=== PATIENT | male | born 1950 | race Caucasian/White ===

== ENCOUNTER 2017-05-27 15:10 | Emergency (ER) | payer MEDICARE, BC ==
[2017-05-27] MEDS ORDERED: Lidocaine 1% 50 ML MDV INJECT ONE (15:54)
--- NOTE | 2017-05-27 16:55 | EDM.PDOC ---
ED HPI GENERAL MEDICAL PROBLEM - General Chief Complaint: Laceration Stated Complaint: LEFT RING FINGER INJURY Time Seen by Provider: 05/27/17 15:33 Source of Information: Reports: Patient, RN Notes Reviewed - History of Present Illness INITIAL COMMENTS - FREE TEXT/NARRATIVE: 66-year-old male comes in with laceration injury right ring finger. He states he was trying to punch out some Plexiglas of some type of door so he could unlock and open the door. He thought it would break out quite easily. This was some type of old building so he was not concerned about breaking the window. However the plastic was stronger than he expected and then when it did break he suffered laceration injury dorsal aspect right ring finger. This was moderately deep and gaping. There has been moderate bleeding which has stopped. No focal weakness. No other injury. Right 4-Ring finger Pain Score (Numeric/FACES): 3 - Related Data Allergies Allergy/AdvReac Type Severity Reaction Status Date / Time No Known Allergies Allergy Verified 05/27/17 15:27 Home Meds: Home Meds . [No Known Home Meds] 05/27/17 [History] Past Medical History - Past Surgical History HEENT Surgical History: Reports: Other (See Below) Other HEENT Surgeries/Procedures: fractured nose Social & Family History - Tobacco Use Smoking Status *Q: Never Smoker - Caffeine Use Caffeine Use: Reports: Coffee, Soda, Tea - Recreational Drug Use Recreational Drug Use: No ED ROS GENERAL - Review of Systems Review Of Systems: See Below Constitutional: Reports: No Symptoms HEENT: Reports: No Symptoms Respiratory: Reports: No Symptoms GI/Abdominal: Reports: No Symptoms Musculoskeletal: Reports: Other (Laceration injury dorsum of right ring finger) . Denies: Joint Pain Neurological: Denies: Numbness, Tingling, Weakness ED EXAM, SKIN/RASH Exam: See Below General Appearance: Alert, No Apparent Distress Head: Atraumatic Neck: Supple Respiratory/Chest: No Respiratory Distress Extremities: Other (2.5 cm laceration dorsum proximal phalanx right ring finger) Neurological: No Motor/Sensory Deficits Skin: Warm, Dry ED SKIN PROCEDURES - Laceration/Wound Repair Right Posterior Proximal Finger Lac/Wound length In cm: 2.5 Appearance: Linear Anesthetic Type: Local Local Anesthesia - Lidocaine (Xylocaine): 1% Plain Skin Prep: Saline Suture Size: 3-0 # of Sutures: 8 Suture Type: Nylon Course - Vital Signs Last Recorded V/S: Last Vital Signs Temp 97.0 F 05/27/17 15:30 Pulse 74 05/27/17 15:30 Resp 20 05/27/17 15:30 BP 190/126 H 05/27/17 15:30 Pulse Ox 97 05/27/17 15:30 - Orders/Labs/Meds Meds: Medications Discontinued Medications Generic Name Dose Route Start Last Admin Trade Name Piotr PRN Reason Stop Dose Admin Lidocaine HCl 50 ml 05/27/17 15:54 05/27/17 16:01 Xylocaine 1% INJECT 05/27/17 15:55 50 ml ONETIME ONE Administration Departure - Departure Time of Disposition: 16:54 Disposition: Home, Self-Care 01 Condition: Fair Clinical Impression: Hand laceration Qualifiers: Encounter type: initial encounter Foreign body presence: without foreign body Laterality: right Qualified Code(s): S61.411A - Laceration without foreign body of right hand, initial encounter - Discharge Information Instructions: Laceration Care, Adult, [id number] Referrals: PCP,None [Primary Care Provider] - Forms: ED Department Discharge Additional Instructions: Laceration care instructions. Ice packs and elevation to help get swelling down , stitches out in about 10 days. There is no charge if you have those taken out at our [facility] medical clinic. Call [phone] for appointment. Have rechecked any sign of infection
== END 2017-05-27 17:05 | disposition home or self-care (01) ==
LOC: JD.ED 15:10
DX: S61.214A Laceration without foreign body of right ring finger without damage to nail, initial encounter (principal); W26.8XXA Contact with other sharp object(s), not elsewhere classified, initial encounter
CPT/HCPCS: 12001; 99282-25; 99283-25

== ENCOUNTER 2024-01-01 10:40 | Inpatient (IN) | payer MEDICARE, BC ==
[2024-01-01] MEDS: Albuterol/Ipratropium 3.0-0.5 MG/3 ML Neb Soln NEB ONE (11:56)
[2024-01-01] MEDS: Sodium Chloride 0.9% 10 ML Syringe FLUSH ONE (12:00)
[2024-01-01 12:19] LABS: BASOPHILS ABSOLUTE AUTO 0.1 K/mm3 (0.0-0.2); BASOPHILS PERCENT AUTO 0.9 % (0.0-1.0); EOSINOPHILS ABSOLUTE AUTO 0.6 K/mm3 (0.0-0.4); EOSINOPHILS PERCENT AUTO 9.5 % (0.0-6.0); HEMATOCRIT 46.2 % (42.0-52.0); HEMOGLOBIN 15.6 gm/dl (14.0-18.0); IMMATURE GRAN ABSOLUTE AUTO 0.01 K/mm3 (0.00-0.05); IMMATURE GRAN PERCENT AUTO 0.1 % (0.0-0.4); LYMPHOCYTES ABSOLUTE AUTO 1.2 K/mm3 (1.0-4.8); LYMPHOCYTES PERCENT AUTO 17.6 % (24.0-44.0); MEAN CORPUSCULAR HEMOGLOBIN 31.5 pg (28.0-32.0); MEAN CORPUSCULAR HGB CONC 33.8 g/dl (32.0-36.0); MEAN CORPUSCULAR VOLUME 93.3 fl (83.0-99.0); MONOCYTES ABSOLUTE AUTO 0.6 K/mm3 (0.0-0.8); MONOCYTES PERCENT AUTO 9.3 % (0.0-8.0); NEUTROPHILS ABSOLUTE AUTO 4.2 K/mm3 (1.8-7.7); NEUTROPHILS PERCENT AUTO 62.6 % (41.0-71.0); PLATELET COUNT,PLT 204 K/mm3 (150-400); RED BLOOD CELL COUNT 4.95 M/mm3 (4.52-5.90); WHITE BLOOD CELL COUNT,WBC 6.77 K/mm3 (3.9-11.3)
[2024-01-01 12:46] LABS: ALBUMIN 3.8 g/dl (3.4-5.0); ANION GAP 12.8 (5-15); BILIRUBIN TOTAL 0.6 mg/dL (0.2-1.0); BUN/CREATININE RATIO 12.9 (14-18); C-REACTIVE PROTEIN 0.74 mg/dL (<0.30); CALCIUM 8.7 mg/dL (8.5-10.1); CREATININE 1.4 mg/dL (0.7-1.3); EST CRCL DRUG DOSING (CG) 52.32 mL/min; POTASSIUM,K 3.8 mEq/L (3.5-5.1); PROTEIN TOTAL,TP 7.6 g/dl (6.4-8.2)
[2024-01-01 13:21] LABS: CORONAVIRUS COVID-19 NAA NEGATIVE (NEGATIVE); INFLUENZA A NAA NEGATIVE (NEGATIVE); RESPIRATORY SYNCYTIAL VIR NAA NEGATIVE (NEGATIVE)
[2024-01-01] MEDS: Sodium Chloride 0.9% 100 ML IV SCH (14:07)
[2024-01-01] MEDS: Sodium Chloride 0.9% 10 ML Syringe FLUSH PRN (14:07)
[2024-01-01] MEDS: Iopamidol 755 Mg/ML 100 ML Bottle IVPUSH ONE (14:07)
[2024-01-01] MEDS: Doxycycline Monohydrate 100 MG Cap PO ONE (15:52)
[2024-01-01] MEDS: predniSONE 20 MG Tab PO ONE (15:52)
[2024-01-01] MEDS ORDERED: Ondansetron 4 MG/2 ML SDV IV PRN (16:47)
[2024-01-01] MEDS ORDERED: Acetaminophen 325 MG Tab PO PRN (16:47)
[2024-01-01] MEDS: Albuterol/Ipratropium 3.0-0.5 MG/3 ML Neb Soln NEB SCH (18:16)
[2024-01-02 04:51] LABS: HEMATOCRIT 40.8 % (42.0-52.0); HEMOGLOBIN 13.8 gm/dl (14.0-18.0); MEAN CORPUSCULAR HEMOGLOBIN 31.7 pg (28.0-32.0); MEAN CORPUSCULAR HGB CONC 33.8 g/dl (32.0-36.0); MEAN CORPUSCULAR VOLUME 93.6 fl (83.0-99.0); MEAN PLATELET VOLUME 9.1 fl (9.4-12.4); PLATELET COUNT,PLT 223 K/mm3 (150-400); RED BLOOD CELL COUNT 4.36 M/mm3 (4.52-5.90); WHITE BLOOD CELL COUNT,WBC 8.25 K/mm3 (3.9-11.3)
[2024-01-02 05:43] LABS: A/G RATIO 0.9 (1-2); ALBUMIN 3.2 g/dl (3.4-5.0); ANION GAP 14.4 (5-15); BILIRUBIN TOTAL 0.5 mg/dL (0.2-1.0); BUN/CREATININE RATIO 12.9 (14-18); CALCIUM 8.7 mg/dL (8.5-10.1); CREATININE 1.4 mg/dL (0.7-1.3); EST CRCL DRUG DOSING (CG) 52.32 mL/min; POTASSIUM,K 4.4 mEq/L (3.5-5.1); PROTEIN TOTAL,TP 6.7 g/dl (6.4-8.2)
[2024-01-02] MEDS: predniSONE 20 MG Tab PO SCH (06:34)
[2024-01-02] MEDS: Enoxaparin 40 MG/0.4 ML Syringe SUBCUT SCH (09:49)
[2024-01-02] MEDS: Doxycycline Monohydrate 100 MG Cap PO SCH (09:49)
[2024-01-02] MEDS: guaiFENesin 600 MG Tab.ER PO SCH (20:56)
[2024-01-03 04:45] LABS: ALBUMIN 3.2 g/dl (3.4-5.0); ANION GAP 14.9 (5-15); BILIRUBIN TOTAL 0.6 mg/dL (0.2-1.0); CALCIUM 8.6 mg/dL (8.5-10.1); CREATININE 1.4 mg/dL (0.7-1.3); EST CRCL DRUG DOSING (CG) 52.32 mL/min; POTASSIUM,K 3.9 mEq/L (3.5-5.1); PROTEIN TOTAL,TP 6.4 g/dl (6.4-8.2)
[2024-01-03] MEDS: Aspirin 81 MG Tab.EC PO SCH (08:14)
[2024-01-03] MEDS: amLODIPine 10 MG Tab PO SCH (08:14)
[2024-01-03] MEDS ORDERED: Losartan 50 MG Tab PO SCH (09:00)
[2024-01-03] MEDS: Albuterol/Ipratropium 3.0-0.5 MG/3 ML Neb Soln NEB SCH (14:02)
== END 2024-01-04 10:00 | disposition home or self-care (01) | DRG 193 ==
LOC: JD.ED 10:40 → JD.MS 15:22
PROVIDERS: ADMIT Internal Medicine; ATTEND Internal Medicine
DX: J18.9 Pneumonia, unspecified organism (principal); J96.01 Acute respiratory failure with hypoxia; H54.7 Unspecified visual loss; I10 Essential (primary) hypertension; Z79.82 Long term (current) use of aspirin; Z79.52 Long term (current) use of systemic steroids; Z79.899 Other long term (current) drug therapy
CPT/HCPCS: 0241U; 36415; 71046; 71046-26; 71275; 71275-26; 80053; 83605; 84484; 85025; 85027; 85379; 86140; 87040; 93005; 94640; 94760; 94761; A9270-GY; J1650; J3490; J7512; J7620-GY; Q9967